=== PATIENT | male | born 1985 | race Caucasian/White ===

== ENCOUNTER 2020-03-20 15:25 | Emergency (ER) | payer MEDICAID ==
[~2020-03-20] VITALS: Ht 175.3 cm; Wt 132.0 kg
[2020-03-20 15:48] VITALS: Ht 175.3 cm; Wt 132.0 kg
[2020-03-20 16:39] VITALS: BP 141/89
== END 2020-03-20 16:39 | disposition home or self-care (01) ==
LOC: ED 15:25
DX: H10.13 Acute atopic conjunctivitis, bilateral (principal); H60.92 Unspecified otitis externa, left ear
CPT/HCPCS: 87491; 87591